=== PATIENT | female | born 1945 | race Caucasian/White ===

== ENCOUNTER → 2017-09-13 | Outpatient (CLI) | payer MEDICARE, OTHER | LOC: MC.RAD 08-07 10:40 | DX: Z12.31 Encounter for screening mammogram for malignant neoplasm of breast (principal) ==

== ENCOUNTER → 2018-02-17 | Outpatient (CLI) | payer MEDICARE | LOC: COL.LAB 12:03 | DX: Z01.812 Encounter for preprocedural laboratory examination (principal); M16.12 Unilateral primary osteoarthritis, left hip ==

== ENCOUNTER → 2018-02-26 | Outpatient (REF) ==
[2018-02-26 06:55] LABS: COLLECTION METHOD CATHETER
[2018-02-26 07:00] LABS: MUCOUS Present /lpf; PH 5 (5-8); SQUAMOUS EPITHELIAL None Seen /hpf; URINE APPEARANCE Clear; URINE BACTERIA None Seen /hpf; URINE BILIRUBIN Negative (NEGATIVE); URINE BLOOD Negative (NEGATIVE); URINE COLOR Yellow; URINE GLUCOSE Negative (NEGATIVE); URINE KETONE Negative (NEGATIVE); URINE LEUKOCYTE ESTERASE Negative (NEGATIVE); URINE NITRATE Negative (NEGATIVE); URINE PROTEIN(semi-quant) Negative (NEGATIVE); URINE RBC 0-2 /hpf; URINE UROBILINOGEN Negative (NEGATIVE)
== END ==
LOC: ZMSC 06:53
PROVIDERS: Orthopaedic Surgery
DX: Z01.89 Encounter for other specified special examinations (principal)

== ENCOUNTER 2018-07-18 14:59 | Day surgery (SDC) | payer MEDICARE ==
[~2018-07-18] VITALS: Ht 167.6 cm; Wt 60.6 kg
[2018-07-18] MEDS ORDERED: PRIL40 PO (15:25)
[2018-07-18] MEDS ORDERED: IRON TABLETS325 MG PO (15:25)
[2018-07-18] MEDS ORDERED: CRESTOR5 MG PO (15:26)
[2018-07-18] MEDS ORDERED: ARAVA 20MG TABL20 MG PO (15:26)
[2018-07-18] MEDS ORDERED: LOTREL 2.5 MG-11 CAP PO (15:27)
[2018-07-18] MEDS ORDERED: VITAMIN D31000 I1 PO (15:28)
[2018-07-18] MEDS ORDERED: FIBER GUMMIES2.5 GM PO (15:29)
[2018-07-18] MEDS ORDERED: CENTRUM SILVER1 TAB PO (15:30)
[2018-07-18] MEDS ORDERED: CALTRATE-600 W600 MG PO (15:30)
[2018-07-18] MEDS ORDERED: LUTEIN20 M1 PO (15:30)
[2018-07-18 15:49] VITALS: BP 128/63; PULSE 102; TEMP 98.5
[2018-07-18 17:10] VITALS: BP 118/67; PULSE 99; TEMP 97.6
--- NOTE | 2018-07-18 17:10 | NUR ---
PT RETURNS FROM PROCEDURE TO [facility] BY CART. AMBULATES FROM CART TO CHAIR WITH STANDBY ASSIST. MONITORS APPLIED. VSS AND WNL. OXYGEN AT ROOM AIR. IN ROOM. REPORT OBTAINED FROM DAKOTA HERNANDEZ. PT IS ALERT AND ORIENTED. DENIES PAIN OR NAUSEA. CALL LIGHT IN REACH
[2018-07-18 17:25] VITALS: BP 111/56; PULSE 100
--- NOTE | 2018-07-18 17:26 | NUR ---
PT CONTINUES TO DENY PAIN OR NAUSEA. VSS AND WNL. DR. PARIKH AT SIDE. IN ROOM. CALL LIGHT IN REACH.
[2018-07-18 17:40] VITALS: BP 103/62; PULSE 92
--- NOTE | 2018-07-18 17:40 | NUR ---
PHENERGAN 12.5MG IV GIVEN AT THIS TIME. PT REPORTS SLIGHT NAUSEA. IV SITE DC'D AFTER INFUSION. PT DENIES PAIN.
--- NOTE | 2018-07-18 17:50 | NUR ---
DISCHARGE INSTRUCTIONS GIVEN. PT AND SPOUSE VOICE UNDERSTANDING. PT DENIES PAIN OR NAUSEA.
== END 2018-07-18 18:00 | disposition home or self-care (01) ==
LOC: SDCO 14:59
DX: D50.9 Iron deficiency anemia, unspecified (principal); Z86.010 Personal history of colon polyps; K57.30 Diverticulosis of large intestine without perforation or abscess without bleeding; I10 Essential (primary) hypertension; E78.00 Pure hypercholesterolemia, unspecified; M06.9 Rheumatoid arthritis, unspecified; Z90.710 Acquired absence of both cervix and uterus; J30.81 Allergic rhinitis due to animal (cat) (dog) hair and dander
CPT/HCPCS: J2250; J2405; J2550; J3010; J7030

== ENCOUNTER → 2019-11-23 | Outpatient (CLI) | payer MEDICARE ==
[~2019-11-23] MED LIST: ARAVA 20MG TABL20 MG PO; CALTRATE-600 W600 MG PO; CENTRUM SILVER1 TAB PO; CRESTOR5 MG PO; FIBER GUMMIES2.5 GM PO; IRON TABLETS325 MG PO; LOTREL 2.5 MG-11 CAP PO; LUTEIN20 M1 PO; PRIL40 PO; VITAMIN D31000 I1 PO
== END ==
LOC: COL.RAD 09:18
DX: M48.061 Spinal stenosis, lumbar region without neurogenic claudication (principal); M51.16 Intervertebral disc disorders with radiculopathy, lumbar region; M47.26 Other spondylosis with radiculopathy, lumbar region

== ENCOUNTER → 2019-12-02 | Outpatient (CLI) | payer MEDICARE ==
[~2019-12-02] MED LIST changes: +ACTEMRA80 MG/4 ML IV; +ZOLOFT 25MG25 MG PO
== END ==
LOC: MC.RAD 13:08
DX: Z12.31 Encounter for screening mammogram for malignant neoplasm of breast (principal)

== ENCOUNTER → 2019-12-07 | Outpatient (CLI) | payer MEDICARE ==
[~2019-12-07] VITALS: Ht 167.6 cm; Wt 69.5 kg
[~2019-12-07] MED LIST changes: +CRESTOR 10MG10 MG PO
[2019-12-07 13:30] VITALS: BP 168/96; PULSE 92
[2019-12-07 14:10] VITALS: BP 164/85; PULSE 88
== END ==
LOC: COL.RAD 13:00
DX: M54.5 Low back pain (principal)
CPT/HCPCS: J3301

== ENCOUNTER → 2020-05-02 | Outpatient (CLI) | payer MEDICARE ==
[~2020-05-02] VITALS: Ht 167.6 cm; Wt 79.0 kg
[~2020-05-02] MED LIST changes: +FOSAMAX 70MG TA70 MG PO; +FOSAMAX PO
[2020-05-02 13:31] VITALS: BP 177/94; PULSE 102
--- NOTE | 2020-05-02 13:37 | NUR ---
SITTING NO PAIN. AMBULATING HAS PAIN IN LOWER BACK AROUND THE LEFT SIDE AND DOWN TO JUST ABOVE THE KNEE, PAIN IS 8/10, SHARP AND CONSTANT. NO NUMBNESS OR TIMGLING.
[2020-05-02 14:14] VITALS: BP 151/89; PULSE 86
--- NOTE | 2020-05-02 14:30 | NUR ---
Pt out to car per wheelchair. Pt up and into car without assistance.
== END ==
LOC: COL.RAD 12:56
DX: M51.26 Other intervertebral disc displacement, lumbar region (principal)
CPT/HCPCS: J3301

== ENCOUNTER → 2020-08-16 | Outpatient (CLI) | payer MEDICARE | LOC: MHCPAIN 14:20 | DX: M53.3 Sacrococcygeal disorders, not elsewhere classified (principal); M70.62 Trochanteric bursitis, left hip; M47.817 Spondylosis without myelopathy or radiculopathy, lumbosacral region; G89.29 Other chronic pain | CPT/HCPCS: G0463 ==

== ENCOUNTER → 2020-09-01 | Outpatient (CLI) | payer MEDICARE | LOC: MHCPAIN 09:55 | DX: M47.818 Spondylosis without myelopathy or radiculopathy, sacral and sacrococcygeal region (principal); M53.3 Sacrococcygeal disorders, not elsewhere classified; M25.552 Pain in left hip | CPT/HCPCS: G0260; J1040; Q9967 ==

== ENCOUNTER → 2020-09-12 | Outpatient (CLI) | payer MEDICARE | LOC: MHCPAIN 09:18 | DX: M47.817 Spondylosis without myelopathy or radiculopathy, lumbosacral region (principal); M53.3 Sacrococcygeal disorders, not elsewhere classified; M70.62 Trochanteric bursitis, left hip; G89.29 Other chronic pain | CPT/HCPCS: G0463 ==

== ENCOUNTER 2023-04-03 12:38 | Outpatient (CLI) | payer MEDICARE ==
[~2023-04-03] VITALS: Ht 167.6 cm; Wt 66.6 kg
[~2023-04-03 12:38] MED LIST changes: +ASPIRIN E.C. 8181 MG PO; +METAMUCIL0.52 G1; +NASONEX SPRAY17 GM NS; +ORENCIA250 MG IV; +ZOLOFT 50MG50 MG PO
[2023-04-03 13:30] VITALS: BP 130/97; PULSE 82; TEMP 98.8
--- NOTE | 2023-04-03 14:27 | NUR ---
PT TOLERATED ORENCIA INFUSION WELL. VS REMAINED WITHIN NORMAL LIMITS AND PT AMBULATED INDEPENDENTLY TO MAIN [facility] FOLLOWING INFUSION. IV DISCONTINUED AND PT FREE FROM ACUTE CONCERNS AND COMPLAINTS. NEW APPOINTMENT SCHEDULED.
== END 2023-04-03 14:30 | disposition home or self-care (01) ==
LOC: EUO 12:38
DX: Z79.899 Other long term (current) drug therapy (principal)
CPT/HCPCS: J0129-JA

== ENCOUNTER 2023-05-01 13:23 | Outpatient (CLI) | payer MEDICARE ==
[~2023-05-01] VITALS: Ht 167.6 cm; Wt 66.8 kg
[2023-05-01 14:33] VITALS: BP 136/85; PULSE 92; TEMP 98.7
== END 2023-05-01 15:30 | disposition home or self-care (01) ==
LOC: EUO 13:23
DX: Z79.899 Other long term (current) drug therapy (principal)
CPT/HCPCS: J0129-JA

== ENCOUNTER 2023-06-05 12:49 | Outpatient (CLI) | payer MEDICARE ==
[~2023-06-05] VITALS: Ht 167.6 cm; Wt 67.5 kg
[2023-06-05] MEDS ORDERED: ABATACEPT IV ONE (13:00)
[2023-06-05] MEDS ORDERED: NS IV ONE (13:00)
[2023-06-05 14:15] VITALS: BP 130/88; PULSE 88; TEMP 98.6
== END 2023-06-05 14:46 ==
LOC: EUO 12:49
DX: M06.9 Rheumatoid arthritis, unspecified (principal); Z96.642 Presence of left artificial hip joint; Z96.653 Presence of artificial knee joint, bilateral
CPT/HCPCS: J0129-JA

== ENCOUNTER 2023-07-03 12:28 | Outpatient (CLI) | payer MEDICARE ==
[2023-07-03 12:38] VITALS: BP 142/77; PULSE 86; TEMP 97.5
[2023-07-03] MEDS ORDERED: FOSAMAX 70MG TA70 MG PO (12:44)
[2023-07-03] MEDS ORDERED: ABATACEPT IV SCH (13:15)
[2023-07-03] MEDS ORDERED: NS IV SCH (13:15)
--- NOTE | 2023-07-03 14:40 | NUR ---
PATIENT TOLERATED TRANSFUSION WELL. IV DC'D. PATIENT ESCORTED OUT.
== END 2023-07-03 15:48 ==
LOC: EUO 12:28
DX: M06.9 Rheumatoid arthritis, unspecified (principal); Z96.642 Presence of left artificial hip joint; Z96.653 Presence of artificial knee joint, bilateral
CPT/HCPCS: J0129-JA

== ENCOUNTER 2023-07-31 10:37 | Outpatient (CLI) | payer MEDICARE ==
[~2023-07-31] VITALS: Ht 167.6 cm; Wt 68.5 kg
[2023-07-31 11:02] VITALS: BP 117/67; PULSE 86; TEMP 98.3
[2023-07-31] MEDS ORDERED: NS IV ONE (11:30)
[2023-07-31] MEDS ORDERED: ABATACEPT IV ONE (11:30)
--- NOTE | 2023-07-31 12:36 | NUR ---
PT TOLERATED INFUSION WELL. VS REMAINED WITHIN NORMAL LIMITS AND PT FREE FROM AUCTE CONCERNS AND COMPLAINTS UPON DISCHARGE. IV DISCONTINUED. PT AMBULATED INDEPENDENTLY TO MAIN [facility] FOLLOWING INFUSION.
== END 2023-07-31 12:37 | disposition home or self-care (01) ==
LOC: EUO 10:37
DX: M06.9 Rheumatoid arthritis, unspecified (principal); Z96.642 Presence of left artificial hip joint; Z96.653 Presence of artificial knee joint, bilateral
CPT/HCPCS: J0129-JA